=== PATIENT | male | born 1960 | race Hispanic/Latino ===

== ENCOUNTER 2020-12-27 11:16 | Inpatient (IN) | payer SELFPAY ==
[~2020-12-27] VITALS: Ht 157.5 cm; Wt 57.0 kg
[2020-12-27 11:47] LABS: BASOPHILS % (AUTO) 0.4 % (0.0-5.0); EOSINOPHILS % (AUTO) 0.2 % (0.0-8.0); HEMATOCRIT 34.1 % (42-54); LYMPHOCYTES % (AUTO) 6.5 % (21.0-51.0); MEAN CORPUSCULAR HEMOGLOBIN 21.4 pg (27.0-33.0); MEAN CORPUSCULAR HGB CONC 30.2 g/dL (32.0-36.0); MEAN CORPUSCULAR VOLUME 70.9 fL (79-99); MONOCYTES % (AUTO) 9.7 % (3.0-13.0); NEUTROPHILS % (AUTO) 82.5 % (40.0-77.0); PLATELET COUNT (AUTO) 411 K/uL (130-400); RED BLOOD CELL COUNT(AUTO) 4.81 MIL/uL (4.50-6.20); RED CELL DISTRIBUTION WIDTH 15.7 % (11.0-15.5); WHITE BLOOD COUNT (AUTO) 13.6 K/uL (4.8-10.8)
[2020-12-27] MEDS ORDERED: HYDROMORPHONE 0.5 MG SYG (0.5MG/0.5ML) IVP ONE (12:30)
[2020-12-27] MEDS ORDERED: ONDANSETRON 4MG INJ IVP ONE (12:30)
[2020-12-27] MEDS ORDERED: 0.9%NACL 1000ML 1,000 ML IV ONE ×2 (12:30→15:00)
[2020-12-27 12:37] LABS: ALBUMIN 2.7 g/dL (3.5-5.0); BILIRUBIN,TOTAL 0.4 mg/dL (0.2-1.0); CREATININE 0.8 mg/dL (0.5-1.5); POTASSIUM 4.1 mmol/L (3.5-5.1)
[2020-12-27] MEDS ORDERED: ZOSYN 3.375GM+NS 50ML 50 ML ONE (15:10)
[2020-12-27] MEDS ORDERED: DEXTROSE 5 %-0.45 % NACL 1,000 ML IV ONE (15:10)
[2020-12-27] MEDS ORDERED: 0.9%NACL 50ML 50 ML IV ONE (15:11)
[2020-12-27] MEDS ORDERED: ZOSYN 3.375GM+NS 50ML 3.38 GM in 0.9%NACL 50ML 50 ML IV SCH ×2 (15:30→16:30)
[2020-12-27] MEDS: ZOSYN 3.375GM +NS 50ML IV SCH ×2 (15:47→23:12)
[2020-12-27] MEDS: DEXTROSE 5 %-0.45 % NACL 500 ML IV SCH ×2 (15:47→19:40)
[2020-12-27] MEDS ORDERED: ONDANSETRON 4MG INJ IVP PRN (16:30)
[2020-12-27] MEDS ORDERED: ACETAMINOPHEN 325 MG SUPPOSITORY RC PRN (16:30)
[2020-12-27] MEDS ORDERED: MORPHINE 2 MG SYG IVP PRN (16:30)
[2020-12-27] MEDS: 0.9%NACL 1000ML 1,000 ML IV SCH (16:33)
[2020-12-27 16:56] LABS: APPEARANCE,URINE Clear (CLEAR); BILIRUBIN,URINE Negative (NEGATIVE); COLOR,URINE Yellow (YELLOW); GLUCOSE, URINE (UA) Negative (NEGATIVE); KETONES,URINE 40 mg/dL (NEGATIVE); LEUKOCYTE ESTERASE ,URINE Negative (NEGATIVE); NITRATE,URINE Negative (NEGATIVE); OCCULT BLOOD,URINE Negative (NEGATIVE); PROTEIN,URINE Negative (NEGATIVE)
[2020-12-27] MEDS ORDERED: DIATR MEGLU/DIATRIZOATE SODIUM 30 ML BOTTLE ONE (17:14)
[2020-12-27] MEDS ORDERED: IOHEXOL 350 MG/ML 100ML INFUS..BTL IV ONE (17:58)
[2020-12-27 23:05] VITALS: BP 105/65
[2020-12-28] MEDS: CEFEPIME HCL 1 GM VIAL IVP SCH ×3 (01:43→14:01)
[2020-12-28] MEDS: 0.9%NACL 1000ML 1,000 ML IV SCH ×2 (02:30→13:36)
[2020-12-28 04:32] VITALS: BP 102/61
[2020-12-28 04:38] LABS: HEMATOCRIT 30.1 % (42-54); MEAN CORPUSCULAR HEMOGLOBIN 21.5 pg (27.0-33.0); MEAN CORPUSCULAR HGB CONC 30.2 g/dL (32.0-36.0); RED BLOOD CELL COUNT(AUTO) 4.24 MIL/uL (4.50-6.20); RED CELL DISTRIBUTION WIDTH 15.7 % (11.0-15.5)
[2020-12-28 05:05] LABS: BILIRUBIN,TOTAL 0.4 mg/dL (0.2-1.0); CREATININE 0.9 mg/dL (0.5-1.5); POTASSIUM 3.8 mmol/L (3.5-5.1); TOTAL PROTEIN, SERUM 6.5 g/dL (6.0-8.3)
[2020-12-28] MEDS: METRONIDAZOLE 500MG/100ML BAG 100 ML IVPB SCH ×2 (05:54→14:00)
[2020-12-28 07:47] VITALS: BP 109/62
[2020-12-28 12:00] VITALS: BP 115/69
[2020-12-28 16:00] VITALS: BP 93/50
[2020-12-28 20:00] VITALS: BP 110/56
[2020-12-28] MEDS: 0.9%NACL 50ML 50 ML IV SCH (22:18)
[2020-12-28] MEDS: ZOSYN 3.375GM +NS 50ML IV SCH (22:18)
[2020-12-28 23:56] VITALS: BP 97/56
[2020-12-29] MEDS: CEFEPIME HCL 1 GM VIAL IVP SCH ×3 (01:35→16:07)
[2020-12-29] MEDS: 0.9%NACL 1000ML 1,000 ML IV SCH ×3 (01:38→16:08)
[2020-12-29 04:31] VITALS: BP 97/61
[2020-12-29] MEDS: ZOSYN 3.375GM +NS 50ML IV SCH ×3 (05:52→21:12)
[2020-12-29] MEDS: 0.9%NACL 50ML 50 ML IV SCH ×3 (05:52→21:12)
[2020-12-29 08:00] VITALS: BP 95/56
[2020-12-29 10:13] LABS: HEMATOCRIT 30.6 % (42-54); MEAN CORPUSCULAR HEMOGLOBIN 21.1 pg (27.0-33.0); MEAN CORPUSCULAR HGB CONC 29.4 g/dL (32.0-36.0); MEAN CORPUSCULAR VOLUME 71.8 fL (79-99); RED BLOOD CELL COUNT(AUTO) 4.26 MIL/uL (4.50-6.20); WHITE BLOOD COUNT (AUTO) 6.6 K/uL (4.8-10.8)
[2020-12-29 10:21] LABS: CREATININE 0.8 mg/dL (0.5-1.5); POTASSIUM 4.2 mmol/L (3.5-5.1)
[2020-12-29 12:00] VITALS: BP 104/57
[2020-12-29] MEDS ORDERED: ACETAMINOPHEN 325 MG SUPPOSITORY RC PRN (13:00)
[2020-12-29] MEDS ORDERED: ACETAMINOPHEN 650 MG SUPPOSITORY RC PRN (14:00)
[2020-12-29 16:00] VITALS: BP 101/61
[2020-12-29 19:48] VITALS: BP 111/67
[2020-12-29 23:37] VITALS: BP 102/65
[2020-12-30] MEDS: CEFEPIME HCL 1 GM VIAL IVP SCH ×4 (00:03→23:21)
[2020-12-30 03:23] VITALS: BP 96/56
[2020-12-30 04:06] LABS: HEMATOCRIT 30.7 % (42-54); MEAN CORPUSCULAR HEMOGLOBIN 21.1 pg (27.0-33.0); MEAN CORPUSCULAR HGB CONC 29.3 g/dL (32.0-36.0); MEAN CORPUSCULAR VOLUME 72.1 fL (79-99); RED BLOOD CELL COUNT(AUTO) 4.26 MIL/uL (4.50-6.20); RED CELL DISTRIBUTION WIDTH 16.1 % (11.0-15.5); WHITE BLOOD COUNT (AUTO) 5.3 K/uL (4.8-10.8)
[2020-12-30 04:16] LABS: CREATININE 0.9 mg/dL (0.5-1.5); POTASSIUM 4.1 mmol/L (3.5-5.1)
[2020-12-30] MEDS: 0.9%NACL 50ML 50 ML IV SCH ×3 (05:18→21:10)
[2020-12-30] MEDS: ZOSYN 3.375GM +NS 50ML IV SCH ×3 (05:18→21:10)
[2020-12-30 08:25] VITALS: BP 98/60
[2020-12-30] MEDS: 0.9%NACL 1000ML 1,000 ML IV SCH ×3 (08:35→23:38)
[2020-12-30 08:58] LABS: INR 1.23 (0.85-1.15); PROTHROMBIN TIME 13.2 SEC (9.6-11.6)
[2020-12-30 10:49] VITALS: BP 94/64
[2020-12-30 15:59] VITALS: BP 109/70
[2020-12-30 20:00] VITALS: BP 108/63
[2020-12-31 00:28] VITALS: BP 114/61
[2020-12-31 04:41] VITALS: BP 96/52
[2020-12-31] MEDS: 0.9%NACL 50ML 50 ML IV SCH ×3 (04:47→21:50)
[2020-12-31] MEDS: ZOSYN 3.375GM +NS 50ML IV SCH ×3 (04:47→21:49)
[2020-12-31 05:27] LABS: HEMATOCRIT 31.4 % (42-54); MEAN CORPUSCULAR HEMOGLOBIN 21.4 pg (27.0-33.0); MEAN CORPUSCULAR HGB CONC 30.3 g/dL (32.0-36.0); MEAN CORPUSCULAR VOLUME 70.9 fL (79-99); RED BLOOD CELL COUNT(AUTO) 4.43 MIL/uL (4.50-6.20); RED CELL DISTRIBUTION WIDTH 15.9 % (11.0-15.5); WHITE BLOOD COUNT (AUTO) 4.5 K/uL (4.8-10.8)
[2020-12-31 05:46] LABS: CREATININE 0.8 mg/dL (0.5-1.5); POTASSIUM 3.6 mmol/L (3.5-5.1)
[2020-12-31 08:06] VITALS: BP 106/71
[2020-12-31] MEDS: CEFEPIME HCL 1 GM VIAL IVP SCH ×3 (08:38→23:10)
[2020-12-31] MEDS: 0.9%NACL 1000ML 1,000 ML IV SCH ×2 (08:48→21:57)
[2020-12-31 10:58] VITALS: BP 111/60
[2020-12-31 16:41] VITALS: BP 109/65
[2020-12-31 20:00] VITALS: BP 110/67
[2021-01-01] VITALS: BP 113/69
[2021-01-01 04:00] VITALS: BP 111/69
[2021-01-01 05:39] LABS: HEMATOCRIT 30.5 % (42-54); MEAN CORPUSCULAR HEMOGLOBIN 21.1 pg (27.0-33.0); MEAN CORPUSCULAR HGB CONC 30.2 g/dL (32.0-36.0); RED BLOOD CELL COUNT(AUTO) 4.36 MIL/uL (4.50-6.20); WHITE BLOOD COUNT (AUTO) 4.2 K/uL (4.8-10.8)
[2021-01-01] MEDS: ZOSYN 3.375GM +NS 50ML IV SCH ×3 (06:05→22:24)
[2021-01-01] MEDS: 0.9%NACL 50ML 50 ML IV SCH ×3 (06:05→22:24)
[2021-01-01 06:08] LABS: CREATININE 0.7 mg/dL (0.5-1.5); POTASSIUM 3.5 mmol/L (3.5-5.1)
[2021-01-01] MEDS ORDERED: DIATR MEGLU/DIATRIZOATE SODIUM 30 ML BOTTLE ONE (07:47)
[2021-01-01] MEDS ORDERED: IOHEXOL-350 75 ML VIAL IV ONE (07:47)
[2021-01-01 08:07] VITALS: BP 113/70
[2021-01-01] MEDS: CEFEPIME HCL 1 GM VIAL IVP SCH (08:26)
[2021-01-01 13:17] VITALS: BP 115/72
[2021-01-01 16:30] VITALS: BP 101/65
[2021-01-01 20:12] VITALS: BP 101/65
[2021-01-02 00:16] VITALS: BP 120/73
[2021-01-02 04:13] VITALS: BP 113/76
[2021-01-02] MEDS: ZOSYN 3.375GM +NS 50ML IV SCH (05:39)
[2021-01-02] MEDS: 0.9%NACL 50ML 50 ML IV SCH (05:39)
[2021-01-02 08:00] VITALS: BP 110/64
== END 2021-01-02 15:15 | disposition left against medical advice (07) | DRG 392 ==
LOC: EDH 11:16 → EDHIP 11:17 → 3CH 21:42
PROVIDERS: ADMIT Internal Medicine; ATTEND Internal Medicine
DX: K57.80 Diverticulitis of intestine, part unspecified, with perforation and abscess without bleeding (principal); D64.9 Anemia, unspecified; D72.829 Elevated white blood cell count, unspecified; R63.4 Abnormal weight loss; Z68.23 Body mass index [BMI] 23.0-23.9, adult; Z82.49 Family history of ischemic heart disease and other diseases of the circulatory system
CPT/HCPCS: 36415; 74176; 74177; 74178; 76705; 80048; 80053; 81003; 82150; 82378; 83605; 83690; 84484; 85025; 85027; 85610; 85730; 86316; 87040; G0378; J0692; J1170; J2405; J2543; J3490; J7030; J7042; Q9963; Q9967